=== PATIENT | male | born 1975 | race Caucasian/White ===

== ENCOUNTER 2024-08-24 22:21 | Emergency (ER) | payer BC ==
[~2024-08-24] VITALS: Ht 188 cm; Wt 98.8 kg
[2024-08-24 22:24] VITALS: TEMP 98.8
[2024-08-24] MEDS: normal saline 1000ml 1,000 ML IV ONE (22:50)
[2024-08-24] MEDS: diazepam inj 5 MG/ML inj. IV ONE (22:54)
[2024-08-24] MEDS: ondansetron/PF 4mg/2ml inj IV ONE (22:54)
[2024-08-24 23:08] LABS: BASOPHILS % (AUTO) 0.5 % (0-1); EOSINOPHILS % (AUTO) 0 % (0-6); HEMATOCRIT 50.7 % (42.0-52.0); HEMOGLOBIN 17.6 g/dl (14.0-17.9); LYMPHOCYTES # (AUTO) 1.2 X10'3 (1.1-4.8); LYMPHOCYTES % (AUTO) 12.9 % (21-51); MEAN CORPUSCULAR HEMOGLOBIN 33.2 PG (27.0-31.0); MEAN CORPUSCULAR HGB CONC 34.6 g/dL (33.0-36.5); MEAN CORPUSCULAR VOLUME 95.9 FL (78-98); MEAN PLATELET VOLUME 7.7 FL (7.4-10.4); MONOCYTES # (AUTO) 0.9 X10'3 (0-0.9); MONOCYTES % (AUTO) 9.4 % (2-12); NEUTROPHILS # (AUTO) 7.2 X10'3 (1.8-7.7); NEUTROPHILS % (AUTO) 77.2 % (42-75); PLATELET COUNT 233 X10'3 (140-440); RED BLOOD COUNT 5.29 X10'6 (4.70-6.10); RED CELL DISTRIBUTION WIDTH 15.9 % (11.5-14.5); WHITE BLOOD COUNT 9.3 X10'3 (4.5-11.0)
[2024-08-24 23:25] LABS: ALANINE AMINOTRANSFERASE 207 U/L (12-78); ALBUMIN 3.9 G/DL (3.4-5.0); ALBUMIN/GLOBULIN RATIO 0.9 (1.1-1.5); ALKALINE PHOSPHATASE 95 IU/L (46-116); ANION GAP 20 (8-16); ASPARTATE AMINO TRANSFERASE 188 U/L (10-37); BILIRUBIN,TOTAL 2.9 MG/DL (0.1-1.0); BLOOD UREA NITROGEN 25 MG/DL (7-18); BUN/CREATININE RATIO 17.7 (10.0-20.0); CALCIUM 8.9 MG/DL (8.5-10.1); CHLORIDE 88 MMOL/L (99-107); CREATININE 1.41 MG/DL (0.60-1.10); GLUCOSE 154 MG/DL (70-104); POTASSIUM 3.9 MMOL/L (3.5-5.1); SODIUM 133 MMOL/L (135-145); TOTAL CARBON DIOXIDE 24.6 MMOL/L (24-32); TOTAL PROTEIN 8.4 G/DL (6.4-8.2); eCRCL 74 ML/MIN; eGFR 54 ML/MIN
[2024-08-25] MEDS ORDERED: ONDA-243 PO (00:05)
[2024-08-25 00:24] VITALS: BP 126/93; PULSE 60; RESP 16; O2SAT 98
== END 2024-08-25 00:28 | disposition home or self-care (01) ==
LOC: ER 22:21
DX: K52.9 Noninfective gastroenteritis and colitis, unspecified (principal); Z20.822 Contact with and (suspected) exposure to COVID-19; R25.1 Tremor, unspecified; R74.01 Elevation of levels of liver transaminase levels; K76.0 Fatty (change of) liver, not elsewhere classified
CPT/HCPCS: 36415; 80053; 85025; 87811; 96361; 96374; 96375; 99284; J2405; J3360; J7030

== ENCOUNTER 2025-03-04 00:29 | Emergency (ER) | payer BC ==
[~2025-03-04] VITALS: Ht 188 cm; Wt 95.0 kg
[~2025-03-04 00:29] MED LIST: ONDA-243 PO
[2025-03-04 00:46] VITALS: TEMP 97.6
--- NOTE | 2025-03-04 00:50 | Physician Documentation ---
History of Present Illness Chief Complaint: Abdominal Pain w/vomiting Stated Complaint: VOMITING,WEAKNESS Time Seen by MD: 00:50 HPI 49-year-old man presenting with nausea and vomiting. He tells me that he has been under lot of stress over the last 3 months, including stress with his work, and stress with family issues. He reports intermittent episodes of nausea and vomiting. Over the past 2 days he reports having significant nausea and vomiting and has been unable to keep down much food or fluids. His urine is very dark. He reports some discomfort in his upper abdomen. He also reports significant weight loss over the last couple of months, unintentional. No definite fevers, chills or other infectious type symptoms today. He did see his primary care doctor last week, who prescribed him anxiety medication. He does not have nausea medicine at home. Medication Reconciliation Allergies: Coded Allergies: No Known Allergies (Unverified , 08/24/24) Scheduled PRN ONDANSETRON ODT 4mg tablet (Ondansetron Odt), 1 TAB PO Q6H PRN PRN for nausea/vomiting ONDANSETRON ODT 4mg tablet (Ondansetron Odt), 1 TAB PO Q6H PRN PRN for nausea/vomiting Review of Systems Constitutional: Denies: fever Gastrointestinal: Reports: abdominal pain, nausea, vomiting Physical Exam Vital Signs: Temperature: 97.6, Source: Oral, Heart Rate: 84, Respiratory Rate: 12, BP: 128/95, Pulse Oximetry: 100, Weight: 95.000 Oxygen Flow Rate: 0 Physical Exam General: This is a tired and mildly anxious appearing middle-aged man HEENT: Atraumatic, oropharynx appears dry Heart: Mild tachycardic, appears regular Lungs: normal work of breathing, normal oxygen saturation on room air Abdomen: Soft, nondistended, no reaction to deep palpation in all quadrants, no rebound or guarding : Urine sample at bedside is dark brown Neuro: Alert and oriented, no focal deficits Psychiatric: Appears very stressed, but is cooperative Progress Results/Orders Results/Orders Orders - MAHNAZ CHRISTIE MD Urinalysis, Cult If Indicated (03/04/25 00:34) Cbc/Diff (03/04/25 00:34) BMP (03/04/25 00:34) Lipase (03/04/25 00:34) CMP (03/04/25 00:34) Vital Signs 03/04/25 03/04/25 00:34 00:46 Temp 97.6 97.6 Pulse 89 84 Resp 16 12 B/P (MAP) 112/78 128/95 (106) Pulse Ox 97 100 O2 Flow Rate 0 0 Laboratory Tests Test 03/04/25 00:45 CBC Comment Chemistry Comments Re-Evaluation Re-Evaluation : Progress Re-evaluation: The patient is resting comfortably in bed, states that his stomach feels better. He tolerates oral hydration. He feels comfortable going home. EKG/XRAY/CT/US/VASC/MRI CT : Impression I personally reviewed the CT scan, and this shows no obvious mass in the p ancreas or liver, no evidence of bowel obstruction or inflammation, no pancreatic inflammation Medical Decision Making Additional Comments Differential diagnosis includes viral syndrome, stress or anxiety reaction, dehydration, electrolyte derangement, acute kidney injury, cancer Assessment 49-year-old male presenting with 2 days of nausea and vomiting. He has a benign abdominal exam. His urine is very dark and he appears clinically dehydrated. Much of his presentation seems related distress, no fever other obvious infectious symptoms. He was given IV fluids, anxiety and nausea medicine. His laboratory testing does show elevated LFTs, similar to previous. He tells me he has never had an abdominal CT scan and so this was obtained to evaluate for other dangerous pathology or cancer. This shows no acute process. After sympto matic treatment he was feeling much better. I suspect that much of his presentation is related to stress. He later admits to drinking alcohol daily, which could contribute to his liver function tests. He is currently seeing a psychiatrist and his primary care doctor is working with him to address all of these issues. I will give him a prescription for Zofran. Otherwise I feel he is safe for discharge home. Departure Time of Disposition: 04:03 Disposition: 01 HOME / SELF CARE / HOMELESS Impression: Primary Impression: Elevated liver enzymes Additional Impressions: Nausea and vomiting Stress and adjustment reaction Condition: Improved Discharge Instructions: Managing Stress, Adult Referrals: NO PRIMARY CARE PROVIDER (PCP) Prescriptions ONDANSETRON ODT 4mg tablet (ONDANSETRON ODT) 4 Mg Tab.rapdis 1 TAB PO Q6H PRN PRN for nausea/vomiting for 4 Days, #16 TAB 1 Refill Prov: MAHNAZ CHRISTIE MD 03/04/25 Comments Your testing today did not show any dangerous findings. Your liver function tests remains slightly elevated, similar to past blood testing. No significant increase or change. The CT scan of your abdomen did not show any dangerous findings including no sign of inflammation in your liver pancreas, no sign of a mass or other abnormality. Education Educated: Patient Educated regarding: diagnosis, treatment, need for follow up Signature Scribe Signature: [email or web address] Attestation: MAHNAZ Soriano MD Mar 04, 2025 00:50
[2025-03-04 00:51] LABS: BASOPHILS % (AUTO) 0.4 % (0-1); EOSINOPHILS % (AUTO) 0.1 % (0-6); HEMATOCRIT 42.1 % (42.0-52.0); HEMOGLOBIN 14.7 g/dl (14.0-17.9); LYMPHOCYTES # (AUTO) 1.2 X10'3 (1.1-4.8); LYMPHOCYTES % (AUTO) 13.8 % (21-51); MEAN CORPUSCULAR HEMOGLOBIN 32.8 PG (27.0-31.0); MEAN CORPUSCULAR HGB CONC 34.8 g/dL (33.0-36.5); MEAN CORPUSCULAR VOLUME 94.1 FL (78-98); MEAN PLATELET VOLUME 7.2 FL (7.4-10.4); MONOCYTES # (AUTO) 0.7 X10'3 (0-0.9); MONOCYTES % (AUTO) 8.2 % (2-12); NEUTROPHILS # (AUTO) 6.5 X10'3 (1.8-7.7); NEUTROPHILS % (AUTO) 77.5 % (42-75); PLATELET COUNT 149 X10'3 (140-440); RED BLOOD COUNT 4.48 X10'6 (4.70-6.10); RED CELL DISTRIBUTION WIDTH 14.6 % (11.5-14.5); WHITE BLOOD COUNT 8.4 X10'3 (4.5-11.0)
[2025-03-04 01:10] LABS: ALANINE AMINOTRANSFERASE 102 U/L (12-78); ALBUMIN 3.3 G/DL (3.4-5.0); ALBUMIN/GLOBULIN RATIO 0.8 (1.1-1.5); ALKALINE PHOSPHATASE 157 IU/L (46-116); ANION GAP 20 (8-16); ASPARTATE AMINO TRANSFERASE 275 U/L (10-37); BLOOD UREA NITROGEN 18 MG/DL (7-18); BUN/CREATININE RATIO 18.9 (10.0-20.0); CALCIUM 8.5 MG/DL (8.5-10.1); CHLORIDE 94 MMOL/L (99-107); CREATININE 0.95 MG/DL (0.60-1.10); GLUCOSE 114 MG/DL (70-104); LIPASE 129 U/L (16-77); POTASSIUM 4.4 MMOL/L (3.5-5.1); SODIUM 134 MMOL/L (135-145); TOTAL CARBON DIOXIDE 19.8 MMOL/L (24-32); TOTAL PROTEIN 7.3 G/DL (6.4-8.2); eCRCL 111 ML/MIN; eGFR 85 ML/MIN
[2025-03-04] MEDS: diazepam inj 5 MG/ML inj. IV ONE (02:24)
[2025-03-04] MEDS: normal saline 1000ml 1,000 ML IV ONE (02:25)
[2025-03-04] MEDS: ondansetron/PF 4mg/2ml inj IV ONE (02:25)
[2025-03-04] MEDS ORDERED: iohexol 300mg/ml 100ml inj. ONE (02:49)
[2025-03-04 02:50] LABS: CLARITY,URINE CLEAR (Clear); COLOR,URINE ORANGE (Yellow)
[2025-03-04 02:51] LABS: UA COLLECTION TYPE CLN CATCH MIDSTREAM
[2025-03-04 03:01] LABS: BACTERIA,URINE FEW /HPF (Neg); MUCUS STRANDS FEW /LPF (Neg); RBC,URINE NONE SEEN /HPF (0-2); SQUAMOUS EPITHELIAL CELL,UR FEW /LPF (FEW); WBC,URINE 0-4 /HPF (0-4)
--- NOTE | 2025-03-04 03:32 | RADIOLOGY REPORT ---
Exam: CT CT ABDOMEN PELVIS W/ IV CONTRAST History: Abdominal pain and vomiting, weight loss, elevated LFTs COMPARISON: None Technique: Multidetector spiral CT of the abdomen and pelvis was performed from lung bases to pubic s ymphysis. Intravenous contrast was administered during this examination. Portal venous imaging was o btained. Axial, coronal and sagittal multiplanar reformats were performed by the technologist on a [employer] workstation. Radiation Dose : 1. Abdomen/Pelvis: CTDIvol 83.94 mGy, DLP 3242.14 mGy*cm. CONTRAST: Type of contrast: Omnipaque 300 Contrast injected: 100 ml Contrast ingested: None Findings: Lung Bases: No acute or significant lung base finding. Normal heart size. No pleural or pericardial effusion. Liver: The liver is enlarged, measuring 26.9 cm in craniocaudal dimension. There is diffuse hepatic s teatosis. No focal lesions. Normal hepatic vascular enhancement. Gallbladder and Biliary Tree: The gallbladder is uniformly opacified, suggestive of gallbladder sludg e. Spleen: Unremarkable Pancreas: The pancreas is normal in appearance without focal lesions or abnormal enhancement. Adrenal Glands: Unremarkable Kidneys: No hydronephrosis. Bladder: Unremarkable Bowel: The stomach is grossly normal in appearance. Small bowel and colon are normal in caliber and d istribution. The appendix is normal. Ascites: Absent Lymphadenopathy: No mesenteric, retroperitoneal or periportal lymphadenopathy. Abdominal Wall and Mesentery: Unremarkable. Vasculature: The visualized abdominal aorta is normal in size and caliber. Atherosclerotic vascular c alcifications. Abdominal and pelvic vessels demonstrate normal enhancement. Pelvic Organs: Unremarkable Musculoskeletal: No aggressive focal bony lesions, acute fractures or dislocation. Incompletely visua lized 7.4 x 3.6 cm fat attenuation lesion within the left obturator externus muscle likely represents an intramuscular lipoma. IMPRESSION: 1. No acute abdominal or pelvic finding. 2. Hepatomegaly and diffuse hepatic steatosis. 3. Probable gallbladder sludge. Radiation optimization: All CT scans at this facility use at least one of these dose optimization migel hniques: automated exposure control mA and/or kV adjustment per patient size (includes targeted exam s where dose is matched to clinical indication) or iterative reconstruction.
[2025-03-04] MEDS ORDERED: ONDA-243 PO (04:04)
[2025-03-04 04:05] VITALS: BP 129/89; PULSE 87; RESP 16; O2SAT 100
== END 2025-03-04 04:09 | disposition home or self-care (01) ==
LOC: ER 00:29
DX: R74.8 Abnormal levels of other serum enzymes (principal); F43.22 Adjustment disorder with anxiety; R11.2 Nausea with vomiting, unspecified
CPT/HCPCS: 36415; 74178; 80053; 81001; 83690; 85025; 96361; 96374; 96375; 99285; J2405; J3360; J7030; Q9967